=== PATIENT | male | born 1950 | race Caucasian/White ===

== ENCOUNTER 2019-11-03 06:22 | Outpatient (CLI) | payer MEDICARE ==
[2019-11-03 14:02] LABS: PTT 25.8 SEC (22.9-36.1); Prothrombin Time 12.7 SEC (12.0-14.7)
== END 2019-11-03 06:23 | disposition home or self-care (01) ==
LOC: LABBT 06:22
PROVIDERS: ATTEND Surgery
DX: Z01.812 Encounter for preprocedural laboratory examination (principal); M54.16 Radiculopathy, lumbar region; M48.061 Spinal stenosis, lumbar region without neurogenic claudication
CPT/HCPCS: 85610; 85730

== ENCOUNTER 2019-11-05 09:57 | Day surgery (SDC) | payer MEDICARE ==
[2019-11-03 12:46] VITALS: BMI 36.9
[2019-11-05] MEDS ORDERED: Thrombin 5000 UNITS/5 ML VIAL ONE (12:07)
[2019-11-05] MEDS ORDERED: HYDROmorphone 0.5 MG/0.5 ML SYRINGE ONE ×3 (12:11→15:57)
[2019-11-05] MEDS ORDERED: Fentanyl 100 MCG/2 ML VIAL ONE ×3 (12:11→15:21)
[2019-11-05] MEDS ORDERED: Acetaminophen/Codeine 30-300mg Tablet PO PRN (14:21)
[2019-11-05] MEDS ORDERED: Mag-Al 1200 mg/1200 mg/30 ML UDCUP PO PRN (14:21)
[2019-11-05] MEDS ORDERED: Morphine 2 MG/ML SYRINGE SLOW IVP PRN (14:21)
[2019-11-05] MEDS ORDERED: tiZANidine HCl 4 MG TAB PO PRN (14:21)
[2019-11-05] MEDS ORDERED: Acetaminophen 325 MG TAB PO PRN (14:21)
[2019-11-05] MEDS ORDERED: traMADol HCl 50 MG TAB PO PRN (14:21)
[2019-11-05] MEDS ORDERED: Ondansetron PF 4 MG/2 ML Vial IVP PRN (14:21)
[2019-11-05] MEDS ORDERED: Bisacodyl 10 MG SUPP PR PRN (14:21)
[2019-11-05] MEDS ORDERED: Milk Of Magnesia 30 ML UDCUP PO PRN (14:21)
[2019-11-05] MEDS ORDERED: Fleet Enema 133 ML BOT PR PRN (14:21)
[2019-11-05] MEDS ORDERED: Glycopyrrolate 0.2 MG/ML 5 ML SYRINGE ONE (14:41)
[2019-11-05] MEDS ORDERED: Rocuronium Bromide 10 MG/ML (10ML VIAL) ONE (14:41)
[2019-11-05] MEDS ORDERED: Ondansetron PF 4 MG/2 ML Vial ONE (14:41)
[2019-11-05] MEDS ORDERED: Labetalol HCl 100 MG/20 ML VIAL ONE (14:41)
[2019-11-05] MEDS ORDERED: EPHEDRINE 25 MG/5 ML SYRINGE ONE (14:41)
[2019-11-05] MEDS ORDERED: Dexamethasone 20 MG/5 ML VIAL ONE (14:41)
[2019-11-05] MEDS ORDERED: Lidocaine 1% PF 5 ML VIAL ONE (14:41)
[2019-11-05] MEDS ORDERED: PROPOFOL 200 MG/20 ML VIAL ONE (14:41)
[2019-11-05] MEDS ORDERED: Promethazine HCl 25 MG/ML VIAL IM PRN (14:52)
[2019-11-05] MEDS ORDERED: Promethazine HCl 25 MG/ML VIAL SLOW IVP PRN (14:52)
[2019-11-05] MEDS ORDERED: Ondansetron HCl/PF 4 MG/2 ML Vial IVP PRN (14:52)
--- NOTE | 2019-11-05 15:08 | OP ---
DATE OF PROCEDURE: 11/05/2019 LOCATION: OR 12. [employer]IC[employer] OFFICER: Lisset Richard PA-C PREPROCEDURE DIAGNOSES: Lumbar stenosis, low back and leg pain. POSTPROCEDURE DIAGNOSES: Lumbar stenosis, low back and leg pain. PROCEDURES PERFORMED: L4-L5 laminectomy, partial facetectomy, and foraminotomy. DESCRIPTION OF PROCEDURE: After informed consent was obtained from the patient, the patient was brought to the OR. Proper patient, pause, and identification were carried out. He was placed under excellent general endotracheal anesthesia and positioned prone on the OR table. All appropriate points were padded. We identified the L4-L5 dorsal spines and lamina. Linear matty was made over this region. This area was sterilely cleansed, prepared, and draped. Proper patient, pause, and identification were carried out. The wound was then opened with combination of sharp, monopolar, and blunt dissection. The L4-L5 dorsal spines and lamina were exposed. Localization film confirmed the area of interest, and we performed L4-L5 laminectomy, partial facetectomy, and foraminotomies over the L4-L5 segments. We had excellent decompression of common dural tube and nerve roots. Copious irrigation and hemostasis were occurred throughout. We then closed the wound in anatomic layers following sprinkling of vancomycin powder. The patient emerged from anesthesia. Job ID: [id number]
[2019-11-05] MEDS: HYDROcodone/Acetaminophen 7.5/325 mg Tablet PO PRN ×2 (17:57→21:59)
[2019-11-05] MEDS: Sodium Chloride 0.9% 1,000 ML IV SCH (18:30)
[2019-11-05] MEDS: CEFAZOLIN 2 GM in Premix Bag 1 BAG IVPB SCH (20:22)
[2019-11-05] MEDS ORDERED: Gabapentin 300 MG CAP PO SCH (21:00)
[2019-11-06] MEDS: Sodium Chloride 0.9% 1,000 ML IV SCH (02:39)
[2019-11-06] MEDS: CEFAZOLIN 2 GM in Premix Bag 1 BAG IVPB SCH (03:25)
[2019-11-06 07:37] VITALS: BP 142/72; TEMP 97.8
[2019-11-06] MEDS ORDERED: Gabapentin 300 MG CAP PO SCH (09:00)
[2019-11-06] MEDS: HYDROcodone/Acetaminophen 7.5/325 mg Tablet PO PRN (10:23)
--- NOTE | 2019-11-07 00:27 | DIS ---
DATE OF ADMISSION: 11/05/2019 DATE OF DISCHARGE: 11/06/2019 This is Joe Riddle PA-C dictating a report for Sj Bradford MD. DISCHARGE DIAGNOSIS: Lumbar stenosis with radiculopathy. HOSPITAL COURSE: Mr. Don was admitted on 11/05/2019 to undergo L4-L5 laminectomy, partial facetectomies and foraminotomies. The patient tolerated the procedure very well and he required one overnight stay for adequate pain control and mobilization postoperatively. At the time of discharge today, the patient had excellent strength in the bilateral lower extremities, was up walking to the restroom, and had improvement in his bilateral leg pain. He did complain of some incisional back pain, but otherwise is very pleased with his outcome postoperatively as with his . The patient was discharged home with appropriate patient education, outpatient followups and prescriptions. The patient and his understood to call the office with questions or concerns prior to his next followup appointment, but again was very pleased with his outcome. Job ID: [id number]
== END 2019-11-06 10:35 | disposition home or self-care (01) ==
LOC: SDC 09:57 → SURG A 14:23 → SDC 11-06 10:35
PROVIDERS: ATTEND Surgery
PROC: 01NB0ZZ Release Lumbar Nerve, Open Approach (ICD-10-PCS; principal; 2019-11-05)
DX: M48.062 Spinal stenosis, lumbar region with neurogenic claudication (principal); M54.16 Radiculopathy, lumbar region; Z79.899 Other long term (current) drug therapy
CPT/HCPCS: 76000; J0690; J1100; J1170; J2001; J2405; J2704; J3010; J3370; J3490